=== PATIENT | male | born 1970 | race Two or more races ===

== ENCOUNTER → 2021-03-17 11:13 | Outpatient (CLI) | payer OTHER | END | disposition home or self-care (01) | LOC: LAB 11:13 | PROVIDERS: ATTEND Orthopaedic Surgery | DX: D64.89 Other specified anemias (principal); E88.89 Other specified metabolic disorders; D68.8 Other specified coagulation defects; N39.0 Urinary tract infection, site not specified; Z22.322 Carrier or suspected carrier of Methicillin resistant Staphylococcus aureus; Z76.89 Persons encountering health services in other specified circumstances; I49.8 Other specified cardiac arrhythmias; I10 Essential (primary) hypertension ==

== ENCOUNTER 2021-03-24 08:05 | Outpatient (CLI) | payer OTHER ==
[2021-03-26] MEDS ORDERED: AMLODIPINE-OLM1 EAC2 (10:56)
[2021-03-26] MEDS ORDERED: VASOTEC20 M1 (10:56)
[2021-03-26] MEDS ORDERED: COZAAR100 MG (10:56)
[2021-03-26] MEDS ORDERED: ACTOS15 MG (10:57)
[2021-03-26] MEDS ORDERED: MEMANTINE HCL10 MG (10:57)
[2021-03-26] MEDS ORDERED: DONEPEZIL (10:58)
== END 2021-03-24 08:07 | disposition home or self-care (01) ==
LOC: SONOGRAMA 08:05
PROVIDERS: ATTEND Orthopaedic Surgery
DX: M76.71 Peroneal tendinitis, right leg (principal)

== ENCOUNTER 2021-03-28 09:29 | Day surgery (SDC) | payer OTHER ==
[~2021-03-28 09:29] MED LIST: ACTOS15 MG; AMLODIPINE-OLM1 EAC2; COZAAR100 MG; DONEPEZIL; MEMANTINE HCL10 MG; VASOTEC20 M1
== END 2021-03-28 19:20 | disposition home or self-care (01) ==
LOC: CIR.AMB 09:29
PROVIDERS: ATTEND Orthopaedic Surgery
DX: M76.811 Anterior tibial syndrome, right leg (principal); M21.41 Flat foot [pes planus] (acquired), right foot; M66.361 Spontaneous rupture of flexor tendons, right lower leg; M21.071 Valgus deformity, not elsewhere classified, right ankle; Z20.822 Contact with and (suspected) exposure to COVID-19
CPT/HCPCS: 28300; 20902; 27685; 27695; 28238; C1776

== ENCOUNTER 2021-04-06 17:08 | Inpatient (IN) | payer OTHER ==
[~2021-04-06] VITALS: Ht 172.7 cm; Wt 81.6 kg
[2021-04-06] MEDS ORDERED: ARICEPT5 MG PO (17:38)
[2021-04-06] MEDS ORDERED: PANTOPRAZOLE SO40 M2 PO (17:38)
[2021-04-06] MEDS ORDERED: OMEPRAZOLE MAGN20 MG PO (17:39)
[2021-04-06] MEDS ORDERED: NAMENDA XR1 EACH PO (17:39)
[2021-04-06] MEDS ORDERED: XARELTO10 MG PO (17:39)
[2021-04-12] MEDS ORDERED: AMOX-CLAV 875-1 EACH PO (12:08)
== END 2021-04-12 14:41 | disposition home or self-care (01) | DRG 863 ==
LOC: ER 17:08 → SURG 22:15 → SURH 04-09 14:21
PROVIDERS: ADMIT Orthopaedic Surgery; ATTEND Orthopaedic Surgery
DX: T81.49XA Infection following a procedure, other surgical site, initial encounter (principal); E11.9 Type 2 diabetes mellitus without complications; E11.42 Type 2 diabetes mellitus with diabetic polyneuropathy; I10 Essential (primary) hypertension; G30.9 Alzheimer's disease, unspecified; F02.80 Dementia in other diseases classified elsewhere, unspecified severity, without behavioral disturbance, psychotic disturbance, mood disturbance, and anxiety; G62.89 Other specified polyneuropathies; K76.9 Liver disease, unspecified; E78.5 Hyperlipidemia, unspecified

== ENCOUNTER 2021-04-26 10:01 | Emergency (ER) | payer OTHER ==
[~2021-04-26] VITALS: Ht 185.4 cm; Wt 89.4 kg
[~2021-04-26 10:01] MED LIST changes: +AMOX-CLAV 875-1 EACH PO; +ARICEPT5 MG PO; +NAMENDA XR1 EACH PO; +OMEPRAZOLE MAGN20 MG PO; +PANTOPRAZOLE SO40 M2 PO; +XARELTO10 MG PO
[2021-04-26] MEDS ORDERED: MORGIDOX100 MG PO (15:25)
[2021-04-26] MEDS ORDERED: TRIAMCINOLONE A15 G4 TOP (15:25)
[2021-04-26] MEDS ORDERED: ALLERGY RELIEF10 M3 PO (15:25)
== END 2021-04-26 16:02 | disposition home or self-care (01) ==
LOC: ER 10:01
DX: L50.8 Other urticaria (principal); R19.7 Diarrhea, unspecified

== ENCOUNTER 2021-05-01 07:28 | Outpatient (CLI) | payer OTHER ==
[~2021-05-01 07:28] MED LIST changes: +ALLERGY RELIEF10 M3 PO; +MORGIDOX100 MG PO; +TRIAMCINOLONE A15 G4 TOP
== END 2021-05-01 07:33 | disposition home or self-care (01) ==
LOC: RAD 07:28
PROVIDERS: ATTEND Orthopaedic Surgery
DX: M76.821 Posterior tibial tendinitis, right leg (principal)

== ENCOUNTER 2022-10-01 10:09 | Outpatient (CLI) | payer OTHER | END 2022-10-01 10:13 | disposition home or self-care (01) | LOC: RAD 10:09 | DX: M79.672 Pain in left foot (principal) ==

== ENCOUNTER → 2023-04-12 07:40 | Outpatient (CLI) | payer OTHER ==
[2023-04-12 09:10] LABS: HEMATOCRIT 38.9 % (39.0-48.0); HEMOGLOBIN 13.4 g/dL (13-16.00); MEAN CELL VOLUME 84.8 fL (80.0-100.00); MEAN CORPUSCULAR HEMOGLOBIN 29.2 pg (27.00-32.0); MEAN CORPUSCULAR HGB CONC 34.4 g/dl (32.0-36.0); PLATELET COUNT 259 K/uL (150-450); RED BLOOD COUNT 4.59 M/uL (4.00-6.00); RED CELL DISTRIBUTION WIDTH 13.4 % (11.5-14.5)
[2023-04-12 09:16] LABS: PH,URINE 5.5 (5.0-8.0); URINE APPEARANCE Clear; URINE BILIRRUBIN Negative (NEGATIVE); URINE BLOOD Negative; URINE COLOR Yellow; URINE GLUCOSE Negative (NEGATIVE); URINE LEUKOCYTE Negative; URINE NITRATE Negative; URINE PROTEIN Negative (NEGATIVE); URINE UROBILINOGEN 0.2 E.U./dl
[2023-04-12 09:17] LABS: URINE BACTERIA 196.5 uL (0.0-1933); URINE EPITHELIAL CELLS 24.1 uL (0.0-38.8); URINE WBC 5.5 uL (0.0-23.2)
[2023-04-12 09:26] LABS: INR 1.03; PARTIAL THROMBOPLASTIN TIME 26.9 SECONDS (22.0-34.0); PROTHROMBIN TIME 10.8 SECONDS (9.0-11.5)
[2023-04-12 09:32] LABS: COL EPI 108 SECONDS (82-175)
[2023-04-12 09:38] LABS: ALBUMIN 4.2 gm/dL (3.4-5.0); BILIRUBIN TOTAL 0.39 mg/dL (0.3-1.2); CALCIUM 8.8 mg/dL (8.5-10.1); CREATININE SERUM 0.75 mg/dL (0.70-1.30); GFR 108.12; GLOBULINA 3.8 G/DL (2.4-3.5); POTASSIUM 3.93 mEq/L (3.5-5.1)
[2023-04-12 09:41] LABS: URINE RBC 1.7 uL (0.0-20.8)
== END | disposition home or self-care (01) ==
LOC: LAB 07:40
PROVIDERS: ATTEND Orthopaedic Surgery
DX: D64.9 Anemia, unspecified (principal); D68.8 Other specified coagulation defects; N39.0 Urinary tract infection, site not specified; E11.9 Type 2 diabetes mellitus without complications; Z20.822 Contact with and (suspected) exposure to COVID-19; E88.89 Other specified metabolic disorders; E03.8 Other specified hypothyroidism; Z76.89 Persons encountering health services in other specified circumstances; I10 Essential (primary) hypertension; Z88.0 Allergy status to penicillin

== ENCOUNTER 2023-05-03 05:35 | Day surgery (SDC) | payer OTHER ==
[~2023-05-03] VITALS: Ht 185.4 cm; Wt 102.1 kg
[2023-05-03] MEDS ORDERED: ESCITALOPRAM OX20 MG (10:22)
[2023-05-03] MEDS ORDERED: DONEPEZIL HCL10 MG (10:22)
[2023-05-03] MEDS ORDERED: QUETIAPINE FUMA50 MG (10:25)
[2023-05-03] MEDS ORDERED: DULOXETINE HCL60 MG (10:25)
[2023-05-03] MEDS ORDERED: AMLODIPINE BESY10 MG (10:25)
[2023-05-03] MEDS ORDERED: RAYOS5 MG (10:25)
[2023-05-03] MEDS ORDERED: METOCLOPRAMIDE10 MG (10:25)
[2023-05-03] MEDS ORDERED: CLONAZEPAM2 MG (10:25)
[2023-05-03] MEDS ORDERED: ESTAZOLAM2 MG (10:26)
[2023-05-03] MEDS ORDERED: HUMIRA(CF)40 MG/0.1 (10:26)
== END 2023-05-03 21:25 | disposition home or self-care (01) ==
LOC: CIR.AMB 05:35 → SURH 07:00 → O/R 08:04 → SURH 08:04 → EDSTATUS 10:00 → O/R 15:11 → SURG 15:11 → CIR.AMB 21:25 → SURG 05-04 09:33
PROVIDERS: ATTEND Orthopaedic Surgery
DX: M66.372 Spontaneous rupture of flexor tendons, left ankle and foot (principal); M76.822 Posterior tibial tendinitis, left leg; Z88.0 Allergy status to penicillin; Z20.822 Contact with and (suspected) exposure to COVID-19
CPT/HCPCS: 27691; 28300; L8699

== ENCOUNTER 2024-11-03 12:44 | Outpatient (CLI) | payer OTHER ==
[~2024-11-03 12:44] MED LIST changes: +AMLODIPINE BESY10 MG; +CLONAZEPAM2 MG; +DONEPEZIL HCL10 MG; +DULOXETINE HCL60 MG; +ESCITALOPRAM OX20 MG; +ESTAZOLAM2 MG; +HUMIRA(CF)40 MG/0.1; +METOCLOPRAMIDE10 MG; +QUETIAPINE FUMA50 MG; +RAYOS5 MG
== END 2024-11-03 12:48 | disposition home or self-care (01) ==
LOC: RAD 12:44
PROVIDERS: ATTEND Orthopaedic Surgery
DX: M79.672 Pain in left foot (principal); M20.12 Hallux valgus (acquired), left foot

== ENCOUNTER 2025-01-17 09:27 | Outpatient (CLI) | payer OTHER ==
[~2025-01-17] VITALS: Ht 182.9 cm; Wt 81.6 kg
[2025-01-17 10:23] LABS: BASO % 0.7 % (0.1-1.2); EOS # 0.26 (0.04-0.54); EOS % 4.6 % (0.7-7.0); LYMPH # 1.56 (1.18-3.74); LYMPH % 27.9 % (19.3-53.1); MEAN PLATELET VOLUME 8.70 fl (9.4-12.4); MONO # 0.45 (0.24-0.82); MONO % 8.0 % (4.7-12.5); NEUT # 3.26 (1.56-6.13); NEUT % 58.3 % (34.0-71.1); RED CELL DISTRIBUTION WIDTH 13.0 % (11.6-14.4)
[2025-01-17 10:25] LABS: URINE APPEARANCE Clear; URINE BILIRRUBIN Negative (NEGATIVE); URINE BLOOD Negative; URINE COLOR Dark Yellow; URINE GLUCOSE Negative (NEGATIVE); URINE KETONE Trace (NEGATIVE); URINE LEUKOCYTE Negative; URINE NITRATE Negative; URINE PROTEIN Trace (NEGATIVE); URINE UROBILINOGEN 0.2 E.U./dl
[2025-01-17 10:26] LABS: URINE BACTERIA 41.9 uL (0.0-1933); URINE EPITHELIAL CELLS 6.1 uL (0.0-38.8); URINE RBC 5.8 uL (0.0-20.8); URINE WBC 6.1 uL (0.0-23.2)
[2025-01-17 10:30] LABS: URINE CAST 0.43 uL (0.0-1.40)
[2025-01-17 10:47] LABS: INR 1.04
[2025-01-17 10:59] LABS: COL EPI 112 SECONDS (82-175)
[2025-01-17 11:18] LABS: ALT/SGPT 56.0 U/L (12-78); AST/SGOT 30.0 U/L (15-37); BILIRUBIN TOTAL 0.44 mg/dL (0.3-1.2); BUN CREA RATIO 24.0 (7.0-25.0); CREATININE SERUM 0.76 mg/dL (0.70-1.30); GFR 105.71; GLOBULINA 3.2 G/DL (2.4-3.5); GLUCOSE FASTING 83.0 mg/dL (65-100); OSMOLALITY SERUM 284.0 MOSM/KG (275-295)
[2025-01-17 14:57] VITALS: BP 129/80
== END 2025-01-17 13:20 | disposition home or self-care (01) ==
LOC: RAD 09:27
PROVIDERS: ATTEND Orthopaedic Surgery
DX: D64.9 Anemia, unspecified (principal); E88.89 Other specified metabolic disorders; D68.8 Other specified coagulation defects; N39.0 Urinary tract infection, site not specified; Z22.322 Carrier or suspected carrier of Methicillin resistant Staphylococcus aureus; E11.9 Type 2 diabetes mellitus without complications; Z76.89 Persons encountering health services in other specified circumstances; I10 Essential (primary) hypertension

== ENCOUNTER 2025-02-13 06:00 | Day surgery (SDC) | payer OTHER ==
[2025-02-07 14:08] VITALS: BP 134/84
[2025-02-13] MEDS ORDERED: CEFAZOLIN SODIUM 1,000 MG VIAL ONE (07:01)
[2025-02-13] MEDS ORDERED: CIPROFLOXACIN IN 5 % DEXTROSE 400 MG/200 ML PIGGYBAG IV ONE (07:18)
[2025-02-13] MEDS ORDERED: BUPIVACAINE HCL/MPF 0.5% 30ML VIAL ONE (08:06)
[2025-02-13] MEDS ORDERED: POVIDONE-IODINE 118 ML BOTT TOP ONE (08:35)
== END 2025-02-13 21:30 | disposition home or self-care (01) ==
LOC: CIR.AMB 06:00
PROVIDERS: ATTEND Orthopaedic Surgery
DX: M20.12 Hallux valgus (acquired), left foot (principal); M20.42 Other hammer toe(s) (acquired), left foot; M20.5X2 Other deformities of toe(s) (acquired), left foot

== ENCOUNTER 2025-02-18 17:40 | Inpatient (IN) | payer OTHER ==
[~2025-02-18] VITALS: Ht 185.4 cm; Wt 81.6 kg
[2025-02-18] MEDS ORDERED: TRAMADOL HCL50 MG PO (19:53)
[2025-02-18] MEDS ORDERED: CIPROFLOXACIN500 MG PO (19:53)
--- NOTE | 2025-02-18 19:56 | NUR ---
PTE ALERTA Y ORIENTADO X3. REFIERE FUE OPERADO POR DR. KRISTAL WETZEL. EN PIE LT. PTE REFIERE OBSERVAR AREA DE INCISION ENROJECIDA E INFLAMADA.
[2025-02-18] MEDS ORDERED: CIPROFLOXACIN IN 5 % DEXTROSE 200 ML IV ONE (21:45)
[2025-02-18] MEDS ORDERED: VANCOMYCIN HCL 1,000 MG VIAL IV ONE (21:45)
[2025-02-18] MEDS ORDERED: FAMOTIDINE/PF 20 MG in 0.9 % SODIUM CHLORIDE 8 ML IV PUSH ONE (21:45)
[2025-02-18] MEDS ORDERED: ACETAMINOPHEN 500 MG GEL..CAP PO ONE ×2 (21:45→21:56)
[2025-02-18] MEDS ORDERED: 0.9 % SODIUM CHLORIDE 1,000 ML IV SCH (21:45)
[2025-02-18] MEDS ORDERED: VANCOMYCIN HCL 1,000 MG VIAL ONE (21:56)
[2025-02-18] MEDS ORDERED: FAMOTIDINE/PF 20 MG/2 ML VIAL ONE (21:56)
[2025-02-18 23:08] LABS: BASO % 0.5 % (0.1-1.2); EOS # 0.31 (0.04-0.54); EOS % 5.2 % (0.7-7.0); LYMPH # 1.15 (1.18-3.74); LYMPH % 19.2 % (19.3-53.1); MEAN PLATELET VOLUME 8.90 fl (9.4-12.4); MONO # 0.62 (0.24-0.82); MONO % 10.4 % (4.7-12.5); NEUT # 3.85 (1.56-6.13); NEUT % 64.2 % (34.0-71.1); RED CELL DISTRIBUTION WIDTH 13.6 % (11.6-14.4)
[2025-02-18 23:13] LABS: ERYTHROCYTE SEDIMENTATION RATE 50 mm/hr (0-20)
[2025-02-18 23:28] VITALS: BP 135/80
[2025-02-18 23:31] LABS: INR 1.03
[2025-02-18 23:39] LABS: ALT/SGPT 64.0 U/L (12-78); AST/SGOT 46.0 U/L (15-37); BILIRUBIN TOTAL 0.42 mg/dL (0.3-1.2); BUN CREA RATIO 25.0 (7.0-25.0); CREATININE SERUM 1.19 mg/dL (0.70-1.30); GFR 63.01; GLOBULINA 4.4 G/DL (2.4-3.5); GLUCOSE FASTING 130.0 mg/dL (65-100); OSMOLALITY SERUM 289.0 MOSM/KG (275-295)
[2025-02-18] MEDS ORDERED: TRAMADOL HCL 50 MG TABLET PO PRN (23:45)
[2025-02-18] MEDS ORDERED: METHYLPREDNISOLONE SOD SUCC 125 MG VIAL IV ONE (23:45)
[2025-02-18] MEDS ORDERED: INSULIN LISPRO 1,000 UNIT/10 ML UNITS SUBCUTANEO PRN (23:45)
[2025-02-18] MEDS ORDERED: ACETAMINOPHEN 325 MG TABLET PO PRN (23:45)
[2025-02-18] MEDS ORDERED: DEXTROSE 50 % IN WATER 0.5 G/ML DISP.SYRIN IV PRN (23:45)
[2025-02-18] MEDS ORDERED: DIPHENHYDRAMINE HCL 50 MG/ML VIAL 1ML IV ONE (23:45)
[2025-02-19 00:24] LABS: D DIMER 2.1 MG/L
[2025-02-19 00:44] LABS: URINE APPEARANCE Clear; URINE BILIRRUBIN Negative (NEGATIVE); URINE BLOOD Negative; URINE COLOR Yellow; URINE GLUCOSE Negative (NEGATIVE); URINE KETONE Negative (NEGATIVE); URINE LEUKOCYTE Negative; URINE NITRATE Negative; URINE PROTEIN Negative (NEGATIVE); URINE UROBILINOGEN 0.2 E.U./dl
[2025-02-19 00:50] LABS: URINE EPITHELIAL CELLS 3.9 uL (0.0-38.8); URINE RBC 2.4 uL (0.0-20.8)
[2025-02-19 01:06] LABS: URINE BACTERIA 1.1 uL (0.0-1933); URINE CAST 0.14 uL (0.0-1.40); URINE WBC 1.3 uL (0.0-23.2)
[2025-02-19 01:41] VITALS: BP 131/55; O2SAT 99
[2025-02-19 02:12] VITALS: BP 120/80; O2SAT 95
[2025-02-19 08:56] VITALS: BP 125/76; O2SAT 99
[2025-02-19] MEDS ORDERED: LOSARTAN POTASSIUM 100 MG TABLET PO SCH (09:00)
[2025-02-19] MEDS ORDERED: CIPROFLOXACIN IN 5 % DEXTROSE 200 ML IV SCH (09:00)
[2025-02-19] MEDS ORDERED: VANCOMYCIN HCL 1,000 MG VIAL IV SCH ×2 (09:00→21:00)
[2025-02-19] MEDS ORDERED: ESCITALOPRAM OXALATE 20 MG TABLET PO SCH ×2 (09:00→14:00)
[2025-02-19] MEDS ORDERED: AMLODIPINE BESYLATE 10 MG TABLET PO SCH (09:00)
[2025-02-19] MEDS ORDERED: MEMANTINE HCL 10 MG TABLET PO SCH (09:00)
[2025-02-19] MEDS ORDERED: VANCOMYCIN HCL 1,000 MG VIAL ONE ×2 (09:21→19:15)
[2025-02-19 16:05] VITALS: BP 121/70; O2SAT 99
[2025-02-19] MEDS ORDERED: DIPHENHYDRAMINE HCL 50 MG/ML VIAL 1ML IV SCH (17:00)
[2025-02-19] MEDS ORDERED: CEFTRIAXONE SODIUM 2,000 MG VIAL IV SCH (17:00)
[2025-02-19] MEDS ORDERED: ENALAPRIL MALEATE 20 MG TABLET PO SCH (17:00)
[2025-02-19] MEDS ORDERED: DONEPEZIL HCL 10 MG TABLET PO SCH (17:00)
[2025-02-19] MEDS ORDERED: ATORVASTATIN CALCIUM 20 MG TABLET PO SCH (17:00)
[2025-02-20 01:42] VITALS: BP 112/68; O2SAT 100
[2025-02-20] MEDS ORDERED: VANCOMYCIN HCL 1,000 MG VIAL ONE ×2 (06:27→13:56)
[2025-02-20 06:42] LABS: BASO % 0.3 % (0.1-1.2); EOS # 0.12 (0.04-0.54); EOS % 1.5 % (0.7-7.0); LYMPH # 1.56 (1.18-3.74); LYMPH % 19.5 % (19.3-53.1); MEAN PLATELET VOLUME 8.70 fl (9.4-12.4); MONO # 0.86 (0.24-0.82); MONO % 10.8 % (4.7-12.5); NEUT # 5.40 (1.56-6.13); NEUT % 67.5 % (34.0-71.1); RED CELL DISTRIBUTION WIDTH 13.5 % (11.6-14.4)
[2025-02-20 07:12] LABS: ALT/SGPT 56.0 U/L (12-78); AST/SGOT 29.0 U/L (15-37); BILIRUBIN TOTAL 0.28 mg/dL (0.3-1.2); BUN CREA RATIO 31.0 (7.0-25.0); CREATININE SERUM 0.62 mg/dL (0.70-1.30); GFR 133.71; GLOBULINA 3.1 G/DL (2.4-3.5); GLUCOSE FASTING 101.0 mg/dL (65-100); OSMOLALITY SERUM 293.0 MOSM/KG (275-295)
[2025-02-20] MEDS ORDERED: BACITRACIN 28.35 GM OINT.TUBE TOP ONE (08:00)
[2025-02-20 09:51] VITALS: BP 126/72; O2SAT 100
[2025-02-20 15:23] VITALS: BP 125/73; O2SAT 99
[2025-02-20] MEDS ORDERED: LACTOBACILLUS ACIDOPHILUS 1 CAP CAP PO SCH (17:00)
[2025-02-21 01:39] VITALS: BP 139/80; O2SAT 100
[2025-02-21 06:22] LABS: BASO % 0.8 % (0.1-1.2); EOS # 0.35 (0.04-0.54); EOS % 4.5 % (0.7-7.0); LYMPH # 2.04 (1.18-3.74); LYMPH % 26.0 % (19.3-53.1); MEAN PLATELET VOLUME 9.20 fl (9.4-12.4); MONO # 0.74 (0.24-0.82); MONO % 9.4 % (4.7-12.5); NEUT # 4.61 (1.56-6.13); NEUT % 58.8 % (34.0-71.1); RED CELL DISTRIBUTION WIDTH 13.5 % (11.6-14.4)
[2025-02-21 06:54] LABS: ALT/SGPT 78.0 U/L (12-78); AST/SGOT 41.0 U/L (15-37); BILIRUBIN TOTAL 0.36 mg/dL (0.3-1.2); BUN CREA RATIO 26.0 (7.0-25.0); CREATININE SERUM 0.66 mg/dL (0.70-1.30); GFR 124.4; GLOBULINA 3.3 G/DL (2.4-3.5); GLUCOSE FASTING 86.0 mg/dL (65-100); OSMOLALITY SERUM 284.0 MOSM/KG (275-295)
[2025-02-21] MEDS ORDERED: VANCOMYCIN HCL 1,000 MG VIAL ONE ×2 (08:27→15:14)
[2025-02-21 09:17] VITALS: BP 108/65; O2SAT 99
[2025-02-21 16:44] VITALS: BP 115/74; O2SAT 100
[2025-02-21] MEDS ORDERED: BISMUTH SUBSALICYLATE 524 MG/30 ML BLIST.PACK PO PRN (17:15)
[2025-02-21] MEDS ORDERED: VANCOMYCIN HCL 5 MG/ML REDILUIDO IV SCH (21:00)
[2025-02-21] MEDS ORDERED: LOPERAMIDE HCL 2 MG CAPSULE PO ONE (21:45)
[2025-02-22 00:42] VITALS: BP 113/74; O2SAT 98
[2025-02-22 07:30] VITALS: BP 125/74; O2SAT 99
[2025-02-22 18:01] VITALS: BP 141/86; O2SAT 99
== END 2025-02-22 20:21 | disposition home or self-care (01) | DRG 863 ==
LOC: ER 17:41 → SURH 22:19
PROVIDERS: General Practice; Internal Medicine Infectious Disease; ADMIT Student in an Organized Health Care Education/Training Program; ATTEND Student in an Organized Health Care Education/Training Program
DX: T81.40XA Infection following a procedure, unspecified, initial encounter (principal); L03.116 Cellulitis of left lower limb; I10 Essential (primary) hypertension; E11.9 Type 2 diabetes mellitus without complications; Z79.4 Long term (current) use of insulin

== ENCOUNTER → 2025-03-03 | Emergency (ER) | payer OTHER ==
[~2025-03-03] VITALS: Ht 185.4 cm; Wt 83.9 kg
[~2025-03-03] MED LIST changes: +BENADRYL ALLERG50 MG PO; +CIPROFLOXACIN500 MG PO; +DIPHENHYDRAMINE HCL 50 MG/ML VIAL 1ML IV ONE; +DIPHENHYDRAMINE HCL 50 MG/ML VIAL 1ML ONE; +FAMOTIDINE/PF 20 MG/2 ML VIAL IV ONE; +FAMOTIDINE/PF 20 MG/2 ML VIAL ONE; +METHYLPREDNISOLONE SOD SUCC 125 MG VIAL IM ONE; +METHYLPREDNISOLONE SOD SUCC 125 MG VIAL ONE; +PEPCID AC20 MG PO; +TRAMADOL HCL50 MG PO
[2025-03-03 19:08] LABS: BASO % 0.2 % (0.1-1.2); EOS # 0.23 (0.04-0.54); EOS % 2.4 % (0.7-7.0); LYMPH # 1.96 (1.18-3.74); LYMPH % 20.8 % (19.3-53.1); MEAN PLATELET VOLUME 8.60 fl (9.4-12.4); MONO # 0.84 (0.24-0.82); MONO % 8.9 % (4.7-12.5); NEUT # 6.33 (1.56-6.13); NEUT % 67.3 % (34.0-71.1); RED CELL DISTRIBUTION WIDTH 13.1 % (11.6-14.4)
== END | disposition home or self-care (01) ==
LOC: ER 16:43
PROVIDERS: General Practice
DX: R21 Rash and other nonspecific skin eruption (principal); L50.9 Urticaria, unspecified; I10 Essential (primary) hypertension; E11.9 Type 2 diabetes mellitus without complications; Z88.0 Allergy status to penicillin
CPT/HCPCS: 36415; 96365; 96372; 99282; J1200; J3490 ×2